=== PATIENT | male | born 1970 | race Caucasian/White ===

== ENCOUNTER 2019-03-04 14:51 | Emergency (ER) | payer OTHER ==
[2019-03-04 15:00] VITALS: RESP 18
[2019-03-04] MEDS ORDERED: CYCLOBENZAPRINE 10MG STARTER 3 TAB BTL PO STA (15:11)
[2019-03-04] MEDS ORDERED: KETOROLAC 30 MG/ML 1 ML VIAL IM STA (15:11)
[2019-03-04] MEDS ORDERED: methylPREDNISolone SOD SUCCI 125 MG/2 ML VIAL IM ONE (15:11)
[2019-03-04] MEDS ORDERED: MORPHINE SULFATE 4 MG/ML SYRINGE IM STA (15:11)
--- NOTE | 2019-03-04 15:14 | ED ---
Back Pain HPI - General Chief Complaint: Back Pain/Injury Stated Complaint: Back pain Time Seen by Provider: 03/04/19 15:02 Source: patient, family, RN notes reviewed, old records reviewed Limitations: no limitations - History of Present Illness Initial Comments: Patient's a pleasant 48-year-old male presenting to emergency department today with chief complaint of lower back pain radiation down the right leg and buttocks. Patient reports that his symptoms started last night into today. He's had history of sciatic pain in the past. Patient reports he's had no recent x-rays. 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 Patient states that he's been more active than usual. Patient states that he has had no recent fall or trauma. He denies any saddle anesthesias. Patient states he's had no fevers or chills or abdominal pain. - Related Data Previous Rx's Medication Instructions Recorded Cyclobenzaprine [Flexeril] 10 mg PO TID #12 tab 03/04/19 Dexamethasone 0.75 mg PO DAILY #12 tab 03/04/19 Allergies Allergy/AdvReac Type Severity Reaction Status Date / Time ibuprofen [From Motrin] AdvReac Nausea & Verified 03/04/19 15:01 Vomiting & Diarrhea Review of Systems ROS Statement: Those systems with pertinent positive or pertinent negative responses have been documented in the HPI. ROS Other: All systems not noted in ROS Statement are negative. Past Medical History Past Medical History: No Reported History History of Any Multi-Drug Resistant Organisms: None Reported Past Surgical History: Hernia Repair, Orthopedic Surgery Past Psychological History: No Psychological Hx Reported Smoking Status: Current every day smoker Past Alcohol Use History: Occasional Past Drug Use History: None Reported General Exam - General Exam Comments Initial Comments: Patient is a pleasant 48-year-old male. No significant distress. Limitations: no limitations General appearance: alert Head exam: Present: atraumatic, normocephalic, normal inspection Eye exam: Present: normal appearance, PERRL, EOMI. Absent: scleral icterus, conjunctival injection, periorbital swelling ENT exam: Present: normal exam, mucous membranes moist Neck exam: Present: normal inspection. Absent: tenderness, meningismus, lymphadenopathy Respiratory exam: Present: normal lung sounds bilaterally. Absent: respiratory distress, wheezes, rales, rhonchi, stridor Cardiovascular Exam: Present: regular rate, normal rhythm, normal heart sounds. Absent: systolic murmur, diastolic murmur, rubs, gallop, clicks GI/Abdominal exam: Present: soft, normal bowel sounds. Absent: distended, tenderness, guarding, rebound, rigid Extremities exam: Present: normal inspection, full ROM, normal capillary refill. Absent: tenderness, pedal edema, joint swelling, calf tenderness Back exam: Present: normal inspection, full ROM, tenderness (Patient has tenderness over R sciatic notch.), muscle spasm (Patient is to lumbar spinal muscle spasm. Tenderness over L4-L5.), vertebral tenderness. Absent: rash noted Neurological exam: Present: alert, oriented X3, CN II-XII intact Psychiatric exam: Present: normal affect, normal mood Skin exam: Present: warm, dry, intact, normal color. Absent: rash Course Vital Signs 03/04/19 14:57 Temperature 98.9 F Pulse Rate 86 Respiratory 18 Rate Blood Pressure 127/76 O2 Sat by Pulse 96 Oximetry Medical Decision Making - Medical Decision Making 48-year-old male present today with complaints of right-sided sciatica and lower back pain. Patient reportedly has had a history of lower back and sciatic pain. Worsening symptoms or the past 2 days. He is been doing a lot more physical labor. This time patient's lumbar spine was reviewed and normal. He has no saddle anesthesias or other red flag symptoms. Is given IM pain medications and temperature medications. I discussed with Patient that he needs to follow-up with primary care physician. Return to emergency department if any alarming signs or symptoms occur. - Radiology Data Radiology results: report reviewed Lumbar spine x-rays to prevent normal. Normal CBC and alignment. Posterior elements are intact. Sacroiliac joints are normal. Disposition Clinical Impression: Lumbar back pain, Sciatica Disposition: HOME SELF-CARE Condition: Good Instructions (If sedation given, give patient instructions): Acute Low Back Pain (ED), Sciatica (ED) Additional Instructions: Patient advised to follow-up with primary care physician. Patient should alternate between heat and ice to the lower back. Take medications as prescribed. Patient to do frequent stretching of the lower back. Return to emergency department if any alarming signs or symptoms occur. Prescriptions: Dexamethasone 0.75 mg PO DAILY #12 tab Cyclobenzaprine [Flexeril] 10 mg PO TID #12 tab Is patient prescribed a controlled substance at d/c from ED?: No Referrals: None,Stated [Primary Care Provider] - 1-2 days Dirk Mitchell MD [REFERRING] - 1-2 days Time of Disposition: 15:58
--- NOTE | 2019-03-04 15:54 | XR ---
EXAMINATION TYPE: XR lumbar spine 2 or 3V DATE OF EXAM: 03/04/2019 COMPARISON: NONE HISTORY: Low back pain TECHNIQUE: 3 views FINDINGS: Lumbar vertebra have normal spacing and alignment. Posterior elements are intact. Sacroilia c joints appear normal. IMPRESSION: Normal lumbar spine.
[2019-03-04] MEDS ORDERED: ACET/COD 300 MG/30 MG STARTER PACK 6 TAB BTL PO STA (15:58)
[2019-03-04 16:34] VITALS: BP 121/76; PULSE 58; TEMP 98.8
== END 2019-03-04 16:36 | disposition home or self-care (01) ==
LOC: EC 14:51
DX: M54.41 Lumbago with sciatica, right side (principal); F17.200 Nicotine dependence, unspecified, uncomplicated; Z88.6 Allergy status to analgesic agent
CPT/HCPCS: 72100; 99284; 96372 ×3; J2270; J2930; J1885